=== PATIENT | female | born 1935 | race Caucasian/White ===

== ENCOUNTER 2019-09-06 09:54 | Inpatient (IN) ==
[2019-09-06] MEDS ORDERED: ASPIRIN PO ONE (10:02)
[2019-09-06 10:36] LABS: INR 0.91; PROTIME 12.3 Seconds (11.0-16.0); PTT 30.2 Seconds (22.3-41.8)
--- NOTE | 2019-09-06 10:39 | Diag Imaging Result Doc PS360 ---
EXAM: CHEST-2 VIEWS HISTORY: HTN TECHNIQUE: Two views COMPARISON: 08/12/2019 FINDINGS: The lungs are hyperexpanded. The heart is not enlarged. The vessels are small. There are no infiltrates. No pleural effusions. Mild scoliosis. IMPRESSION: Emphysema Electronically signed by Jerardo Palafox 09/06/2019 10:37 AM
[2019-09-06 10:46] LABS: BASO# 0.06 X1000 (0.0-0.2); BASO% 0.7 % (0.0-0.8); EOS# 0.16 X1000 (0.0-0.7); EOS% 1.8 % (0.0-10.0); HEMATOCRIT 44.5 % (37.0-47.0); HEMOGLOBIN 14.1 g/dL (12.0-16.0); IMM GRAN# 0.02 X1000 (0.0-0.04); IMM GRAN% 0.2 % (0.0-0.5); LYMPH# 2.63 X1000 (1.2-3.4); LYMPH% 29.3 % (20.5-51.1); MCH 30.2 PG (27-31); MCHC 31.7 g/dL (33-37); MCV 95.3 FL (81-99); MONO# 0.65 X1000 (0.11-0.59); MONO% 7.2 % (1.7-9.3); MPV 11.6 FL (7.4-10.4); NEUT# 5.46 X1000 (1.4-6.5); NEUT% 60.8 % (42.2-75.2); PLT 174 X1000 (130-400); RBC 4.67 XMIL (4.2-5.4); RDW 13.3 % (11.5-14.5); WBC 8.98 X1000 (4.8-10.8)
[2019-09-06] MEDS ORDERED: APRESOLINE IV ONE (11:02)
[2019-09-06 11:23] LABS: ALB/GLOB RATIO 1.2; CALCIUM 9.4 mg/dL (8.8-10.2); CREATININE 1.2 mg/dL (0.5-0.9); POTASSIUM 5.1 mmol/L (3.5-5.1); TOTAL BILIRUBIN 0.36 mg/dL (0.20-1.00); TOTAL PROTEIN 7.3 g/dL (6.3-8.3)
--- NOTE | 2019-09-06 12:06 | EKG Report ---
Test Performed on : 09/06/2019 10:08:39 AM Test Reason : HTN Blood Pressure : / mmHG Vent. Rate : 074 BPM Atrial Rate : 074 BPM P-R Int : 112 ms QRS Dur : 076 ms QT Int : 392 ms P-R-T Axes : 065 030 085 degrees QTc Int : 435 ms Normal sinus rhythm. Possible Left atrial enlargement Left ventricular hypertrophy with repolarization abnormality Abnormal ECG No previous ECGs available Unconfirmed Result
--- NOTE | 2019-09-06 13:00 | Diag Imaging Result Doc PS360 ---
EXAM: CT HEAD W/O CONTRAST INDICATION: dizziness, history of stroke TECHNIQUE: This exam was performed using automated exposure control, adjustment of mA or kV according to patient size, and/or use of iterative reconstruction technique. COMPARISON: 08/21/2019 FINDINGS: There is stable diffuse atrophy and ventriculomegaly. There is stable patchy low attenuation in the periventricular and subcortical white matter suggesting mild to moderate microangiopathy. There is no definite acute infarct given the limited sensitivity of CT versus MRI. There is no discrete intracranial mass, mass effect, or intracranial hemorrhage. The surrounding soft tissues and bony structures are essentially unremarkable. IMPRESSION: Stable chronic changes. No definite acute intracranial pathology by CT. Electronically signed by Oneal Richard 09/06/2019 12:57 PM
--- NOTE | 2019-09-06 14:06 | Diag Imaging Result Doc PS360 ---
EXAM: CT ANGIOGRM PULMONARY ARTERIES INDICATION: difficulty breathing, left arm swollen TECHNIQUE: This exam was performed using automated exposure control, adjustment of mA or kV according to patient size, and/or use of iterative reconstruction technique. Thin section axial images and 3-D MIPS were obtained. COMPARISON: None. FINDINGS: There is no evidence of pulmonary embolism. There is fairly extensive aortic atherosclerotic disease with mural calcifications and irregular mural soft plaques throughout the thoracic aorta and especially at the proximal abdominal aorta. There is no evidence of thoracic aortic aneurysm or dissection. There are calcified hilar lymph nodes indicating prior granulomatous disease. There is no evidence of significant mediastinal or hilar lymphadenopathy, otherwise. There is interstitial thickening with a basilar predominance bilaterally suggesting mild edema. There is minimal bibasilar subsegmental atelectasis. There is no pleural fluid collection and no pneumothorax. Limited views of the upper abdomen are essentially unremarkable. IMPRESSION: 1.No evidence of pulmonary embolism. 2.Suggestion of mild interstitial edema with a basilar predominance and mild bibasilar atelectasis. 3.Other incidental/nonacute findings detailed above. Electronically signed by Oneal Richard 09/06/2019 2:04 PM
[2019-09-06] MEDS ORDERED: NS 500 ML IV ONE (14:28)
--- NOTE | 2019-09-06 14:34 | EKG Report ---
Test Performed on : 09/06/2019 12:22:38 PM Test Reason : tachycardia Blood Pressure : / mmHG Vent. Rate : 124 BPM Atrial Rate : 124 BPM P-R Int : 132 ms QRS Dur : 076 ms QT Int : 314 ms P-R-T Axes : 066 001 117 degrees QTc Int : 451 ms Sinus tachycardia. Possible Left atrial enlargement Left ventricular hypertrophy with repolarization abnormality Abnormal ECG When compared with ECG of 06-SEP-2019 10:08, (Unconfirmed) Vent. rate has increased BY [address] now depressed in Lateral leads Nonspecific T wave abnormality no longer evident in Anterior leads Inverted T waves have replaced nonspecific T wave abnormality in Lateral leads Unconfirmed Result
[2019-09-06 15:15] LABS: URINE SOURCE CLEAN CATCH
[2019-09-06 15:26] LABS: BILIRUBIN URINE NEGATIVE (NEGATIVE); BLOOD URINE NEGATIVE (NEGATIVE); COLOR STRAW; GLUCOSE URINE NEGATIVE (NEGATIVE); KETONE URINE NEGATIVE (NEGATIVE); LEUKOCYTES URINE NEGATIVE (NEGATIVE); NITRITE URINE NEGATIVE (NEGATIVE); PROTEIN URINE NEGATIVE (NEGATIVE); SP GRAVITY URINE 1.005; TURBIDITY URINE CLEAR (CLEAR); UROBILINOGEN URINE NORMAL (NORMAL)
[2019-09-06 15:27] LABS: UR EPITHELIAL CELLS <10 /HPF (<10); URINE BACTERIA NEGATIVE /HPF; URINE RBC <10 /HPF (<10); URINE WBC <10 /HPF (<10)
--- NOTE | 2019-09-06 16:05 | PROVIDER DOCUMENTATION ---
This chart was entered by Savanah Lozada Scribe, acting as scribe for Baldemar Soto MD. HPI-General Adult - General Chief Complaint: B/P Problems Stated Complaint: HIGH BP,SLURRED SPEECH Time Seen by Provider: 09/06/19 11:01 Source: patient, family Allergies/Adverse Reactions: Patient Allergies Allergy/AdvReac Type Severity Reaction Status Date / Time No Known Allergies Allergy Verified 04/10/18 14:52 Home Medications: Home Medication List Medication Instructions Recorded Confirmed Last Taken Type Ondansetron [Zofran Odt] 8 mg PO BID PRN #6 tab.rapdis 04/10/18 Unknown Rx Tramadol [Ultram] 50 mg PO Q8H PRN #20 tab 04/10/18 Unknown Rx Ibuprofen 800 mg PO TID PRN #30 tab 02/19/19 Unknown Rx Atorvastatin Calcium 20 mg PO DAILY 09/06/19 09/06/19 Unknown History Losartan Potassium 50 mg PO DAILY 09/06/19 09/06/19 Unknown History - History of Present Illness -Gen Adult Nature of Presenting Problems: 83 yowf presents to the ed with onset this am of dizziness, unsteady gait and elevated Bp of 236/100. pt recently had a abnormal head CT and has a dx of ICP. pt has a follow up appt in october with neuro but do to sx onset this am family brought her in for tx. pt on exam is nontoxic in appearance and sx seems to have improved. Location of Pain/Injury: reports: none Pain Radiation: reports: no radiation Quality of Pain: reports: none Severity: reports: moderate (sizziness and balnce issues) Onset/Duration: reports: this morning Timing: reports: improving, intermittent Context/Activities at Onset: reports: light activity Modifying Factors: improves with: rest. worse with: movement Associated Symptoms: reports: dizziness, trouble walking. denies: back/neck pain, chest pain, headaches, nausea, shortness of breath, vomiting Similar Symptoms Previously?: Yes Recently seen or treated by another doctor?: Yes Review of Systems - Adult - REVIEW OF SYSTEMS - ADULT ROS:: ROS per family Constitutional: denies: chills, fever Eyes: reports: no symptoms reported Ears, Nose, Mouth & Throat: reports: no symptoms reported Cardiovascular: denies: chest pain, palpitations Respiratory: denies: cough, shortness of breath, wheezing Gastrointestinal: denies: diarrhea, nausea, vomiting Genitourinary: reports: no symptoms reported Musculoskeletal: reports: no symptoms reported Integumentary: reports: no symptoms reported Neurological: reports: see HPI, dizziness/vertigo, loss of balance. denies: ataxia, headache/migraines, slurred speech, syncope, tremors Psychiatric: reports: no symptoms reported Endocrine: reports: no symptoms reported Hematologic/Lymphatic: reports: no symptoms reported Allergic/Immunologic: reports: no symptoms reported All Other Systems: Reviewed and Negative Past History - Adult - PAST MEDICAL HISTORY-ADULT Review of Records: reports: Old Records Reviewed, Nursing Assessment Review, Medications Reviewed, Social history reviewed & non-contributory. Major Childhood Illnesses: reports: denies history Cardiovascular: reports: HTN, hyperlipidemia Respiratory: reports: denies history Gastrointestinal: reports: GERD Obstetrical/Gynecological: reports: denies history Genitourinary: reports: denies history Musculoskeletal: reports: arthritis Hand Dominance: Right Handed Neurological: reports: CVA Psychiatric: reports: denies history Endocrine/Immune: reports: denies history Other Conditions: reports: denies history - PRIOR SURGERIES/PROCEDURES Surgical/Procedure History: reports: reviewed, not pertinent - IMMUNIZATION STATUS Childhood Immunizations: See Nurse Assessment Flu Vaccine: See Nurse Assessment - FAMILY HISTORY Family History: reviewed, not pertinent - SOCIAL HISTORY Smoking: quit greater than 1 year Substance Use: denies Alcohol Use Frequency: never Living Situation: family Physical Exam-General - PHYSICAL EXAM-ADULT Initial Vital Signs Reviewed: Yes - CONSTITUTIONAL General Appearance: appears well, alert, no apparent distress, thin - EYES Eyes: PERRL/EOMI, pink conjunctivae - HEAD, EARS, NOSE, MOUTH & THROAT HENMT: moist mucous membranes, normal ENT inspection - NECK Neck: non-tender, full range of motion, supple, normal inspection - RESPIRATORY Respiratory: chest non-tender, lungs clear, normal breath sounds - CARDIOVASCULAR Cardiovascular: normal peripheral pulses, regular rate, rhythm - CHEST (BREASTS) Chest/Breast: deferred - GASTROINTESTINAL (ABDOMEN) Abdominal Exam: normal bowel sounds, non tender, soft - GENITOURINARY Female Genitalia/Pelvic Exam: deferred Rectal Exam: deferred Hemoccult Exam: deferred - MUSCULOSKELETAL Back Exam: no CVA tenderness, no vertebral tenderness Extremity: normal range of motion, non-tender, normal inspection, normal capillary refill, pelvis stable - SKIN Integumentary: normal color, normal turgor, warm/dry - NEUROLOGIC Neurologic: patient navigator II-XII nml as tested - PSYCHIATRIC Psych/Mental Status: normal mood/affect, normal thought content, normal thought process, oriented x 3 Progress - PLAN OF CARE/RESULTS Progress/Plan/Lab Results: Vital Signs - 8 hr 09/06/19 09:57 Temperature 97.4 F L Pulse Rate 76 Respiratory Rate 18 Blood Pressure 236/100 O2 Sat by Pulse Oximetry 98 Laboratory Results - last 24 hr 09/06/19 09/06/19 09/06/19 10:10 10:10 10:10 WBC 8.98 RBC 4.67 Hgb 14.1 Hct 44.5 MCV 95.3 MCH 30.2 MCHC 31.7 L RDW Std Deviation 13.3 Plt Count 174 MPV 11.6 H Immature Gran % (Auto) 0.2 Neut % (Auto) 60.8 Lymph % (Auto) 29.3 [place] % (Auto) 7.2 Eos % (Auto) 1.8 Baso % (Auto) 0.7 Immature Gran # (Auto) 0.02 Neut # (Auto) 5.46 Lymph # (Auto) 2.63 [place] # (Auto) 0.65 H Eos # (Auto) 0.16 Baso # (Auto) 0.06 PT INR PTT (Actin FS) Sodium 137 Potassium 5.1 Chloride 99 Carbon Dioxide 25 Anion Gap 13 BUN 16 Creatinine 1.2 H Estimated GFR/1.73 m2 43 BUN/Creatinine Ratio 13 Glucose 113 H Calculated Osmolality 276 Calcium 9.4 Total Bilirubin 0.36 AST 18 ALT 10 Alkaline Phosphatase 63 Creatine Kinase 101 Troponin T High Sens Dek-Y-Lqpafhxfhys Pept 1555 H Total Protein 7.3 Albumin 4.0 Globulin 3.3 Albumin/Globulin Ratio 1.2 09/06/19 09/06/19 10:10 10:10 WBC RBC Hgb Hct MCV MCH MCHC RDW Std Deviation Plt Count MPV Immature Gran % (Auto) Neut % (Auto) Lymph % (Auto) [place] % (Auto) Eos % (Auto) Baso % (Auto) Immature Gran # (Auto) Neut # (Auto) Lymph # (Auto) [place] # (Auto) Eos # (Auto) Baso # (Auto) PT 12.3 INR 0.91 PTT (Actin FS) 30.2 Sodium Potassium Chloride Carbon Dioxide Anion Gap BUN Creatinine Estimated GFR/1.73 m2 BUN/Creatinine Ratio Glucose Calculated Osmolality Calcium Total Bilirubin AST ALT Alkaline Phosphatase Creatine Kinase Troponin T High Sens 21 H Uka-K-Auldbgmlehi Pept Total Protein Albumin Globulin Albumin/Globulin Ratio Orders Category Date Time Status Cardiac Monitoring DIRECTED Care 09/06/19 10:02 Active Oxygen Therapy- ED Nursing DIRECTED Care 09/06/19 10:02 Active Saline Loc NOW Care 09/06/19 10:02 Active CHEST-2 VIEWS [RAD] Stat Exams 09/06/19 10:[address] HEAD W/O CONTRAST [CT] Stat Exams 09/06/19 12:02 Ordered CBC WITH ELECTRONIC DIFF [HEME] Stat Lab 09/06/19 10:10 Completed CK PROFILE [SP CHEM] Stat Lab 09/06/19 10:10 Completed COMPREHENSIVE METABOLIC PANEL [CHEM] Stat Lab 09/06/19 10:10 Completed D-DIMER [COAG] Stat Lab 09/06/19 12:12 Ordered PRO B-NATRIURETIC PEPTIDE Stat Lab 09/06/19 10:10 Completed PROTIME WITH INR [COAG] Stat Lab 09/06/19 10:10 Completed PTT [COAG] Stat Lab 09/06/19 10:10 Completed TROPONIN T HIGH SENSITIVITY Stat Lab 09/06/19 10:10 Completed Aspirin Med 09/06/19 10:02 Discontinued 325 mg PO NOW ONE Hydralazine [Apresoline] Med 09/06/19 11:02 Discontinued 10 mg IV NOW ONE CP/SOB/Palp >45 yrs of Age Stat Oth 09/06/19 10:02 Ordered EKG [EKG] Stat Ther 09/06/19 10:02 Draft EKG [EKG] Stat Ther 09/06/19 12:03 Ordered Result Diagrams: 09/06/19 10:10 09/06/19 10:10 - REASSESSMENT Reassessment #1 Time Reassessed: 15:02 Status: improving (BP has improved and dr soto at bedside speaking with pt about poc) - EKG 1 Time of EKG reading by physician:: 10:08 EKG Read and Signed by:: Baldemar Soto EKG Interpretation (*Must complete 3 of following elements*): Abnormal Rate: 74 Rhythm: nsr [place]: normal QRS: LVH (with repolarization abnormality) CT Interval: normal ST Wave: normal Comments: poss left atrial enlargement 2 Time of EKG reading by physician:: 12:22 EKG Read and Signed by:: Baldemar Soto EKG Interpretation (*Must complete 3 of following elements*): Abnormal Rate: 124 Rhythm: sinus tachycardia [place]: normal QRS: LVH (with repolarization abnormality) CT Interval: normal ST Wave: normal Prior EKG Comparison: changes noted Comments: poss left atrial enlargement - XRAY 1 XRAY: Bilateral XRAY Study: Chest Impression: See EMR Report (EXAM: CHEST-2 VIEWS HISTORY: HTN TECHNIQUE: Two views COMPARISON: 08/12/2019 FINDINGS: The lungs are hyperexpanded. The heart is not enlarged. The vessels are small. There are no infiltrates. No pleural effusions. Mild scoliosis. IMPRESSION: Emphysema Electronically signed by Jerardo Palafox 09/06/2019 10:37 AM 09/06/19 1037 Interpreting Physician: Jerardo Palafox MD Dictated Date/Time: 09/06/19 1036 cc: Baldemar Soto MD; Peewee Pitts MD) - CT/MRI 1 CT Study: Head Impression: See EMR Report (EXAM: CT HEAD W/O CONTRAST INDICATION: dizziness, history of stroke TECHNIQUE: This exam was performed using automated exposure control, adjustment of mA or kV according to patient size, and/or use of iterative reconstruction technique. COMPARISON: 08/21/2019 FINDINGS: There is stable diffuse atrophy and ventriculomegaly. There is stable patchy low attenuation in the periventricular and subcortical white matter suggesting mild to moderate microangiopathy. There is no definite acute infarct given the limited sensitivity of CT versus MRI. There is no discrete intracranial mass, mass effect, or intracranial hemorrhage. The surrounding soft tissues and bony structures are essentially unremarkable. IMPRESSION: Stable chronic changes. No definite acute intracranial pathology by CT. Electronically signed by Oneal Richard 09/06/2019 12:57 PM 09/06/19 1257 Interpreting Physician: Oneal Richard MD Dictated Date/Time: 09/06/19 1256 cc: Baldemar Soto MD; Peewee Pitts MD) - CONSULTS/PCP/HOSPITALIST Notification #1 *Consult/PCP/Hospitalist*: hospitalist Time Discussed: 16:18 (dr cheung) Consult Disposition: Will see in ED, Admit Departure - Departure Date of Disposition Decision: 09/06/19 Time of Disposition Decision: 15:59 DIAGNOSIS: CHF (congestive heart failure), Elevated troponin, Vertigo, Tachycardia Disposition: ADMITTED INPATIENT 09 Certified Medical Emergency: Emergent Condition: Fair Referrals and Follow-Ups: Peewee Pitts MD [Primary Care Provider] - - Critical Care Note This patient required my direct & personal management of CC.: No Attestation - Physician/ URIEL Attestation Patient care was provided by Advanced Practice Provider:: No The physician spent face to face time with patient:: Yes Advanced Practice Provider documentation review:: Supervising physician onsite and consulted in the evaluation and care of this patient. The physician did have a face to face encounter with the patient. This chart was documented by the indicated scribe, (Savanah Lozada, Jemima) a nd accurately reflects the services I performed and decisions made by me, Baldemar Soto MD, as attested by the provider's signature.
[2019-09-06] MEDS ORDERED: ZOFRAN IV PRN (16:47)
[2019-09-06] MEDS ORDERED: TYLENOL PO PRN (16:47)
[2019-09-06] MEDS ORDERED: APRESOLINE IV PRN (17:05)
--- NOTE | 2019-09-06 19:44 | HISTORY AND PHYSICAL ---
ADDENDUM: The patient seen and examined by me [id number]. All the laboratory, vital signs and images were reviewed. Patient presented to the emergency department with a chief complaint of dizziness and some mental status changes, as per the daughter this patient called her and saying that she was drunk even though she has not been drinking, her blood pressure upon admission was around 239/93. She received a dose of hydralazine and the blood pressure dropped but she became a little bit tachycardic, at the moment of my evaluation the patient was around 150s on the monitor and 100 to 110 on the heart rate but she is answering all my questions and following commands. I do not see any focal deficits. She is oriented x3. On my physical exam this patient seems to be stable, is really benign except that this patient is slightly tachycardic and she has a systolic murmur, I am going to stop the losartan due to her chronic kidney disease and she is not diabetic, also the chest x-ray showed emphysema, ED department asked for CT angiogram to rule out pulmonary embolism because the D-dimer was slightly elevated, venous ultrasound was negative as well. This patient will be hospitalized. We have a CT of the head from 15 days ago that showed a worsening normal-pressure hydrocephalus, I would like Dr. Flood to evaluate this patient on Monday to rule this out and to give us some recommendations. For the blood pressure I will start with a low dose of hydralazine since she responded really well and I will continue with as needed hydralazine as well. I agree with the rest of the nurse practitioner's assessment and plan. cc: Sergey Fox MD
--- NOTE | 2019-09-06 19:52 | HISTORY AND PHYSICAL ---
PRIMARY CARE PROVIDER: Dr. Pitts. CHIEF COMPLAINT: Dizziness. HISTORY OF PRESENT ILLNESS: Ms. Marietta Chen is an 83-year-old female with a medical history of a CVA 20+ years ago, hypertension, and hyperlipidemia, who states that 3 times last night she got up to go the bathroom. All 3 times, she had to use her walker because she was so dizzy. She was able to get there and come back without falling, and she was able to sleep in between getting up. She denied any other symptoms other than feeling like she was drunk and that her head felt full. On further questioning her, she had a fall around 2 months ago and hit the back of her head, and from that they had gotten a head CT on the 15 of this month. That head CT shows a finding compatible with worsening normal-pressure hydrocephalus; however, she had another one that showed chronic stable changes and ventriculomegaly. She states the dizziness is not there now. Neurologic exam is intact. She is oriented x3. Something that was found is that she was very hypertensive when she got here. Heart rate was normal at that time, but she was given medication to help bring the blood pressure down. When the blood pressure came down, the heart rate went up from the 70s up to the 140s. Right now she is in the 100s. Blood pressure is stable, and so we are going to admit her for further treatment and evaluation. PAST MEDICAL HISTORY: 1. Peritonitis as a child. 2. Hypertension. 3. Hyperlipidemia. 4. CVA 20+ years ago. 5. Ventriculomegaly or normal-pressure hydrocephalus which is essentially a new diagnosis for her. 6. Arthritis. 7. CKD stage 2. PAST SURGICAL HISTORY: 1. Exploratory laparotomy from the peritonitis when she was a child. 2. Hysterectomy. SOCIAL HISTORY: Quit smoking in the year 1999, but prior to that she was a azbt-elij-upi-day smoker. She did not start smoking until her adult years. No alcohol. No illicit drug use. She lives at home alone. She uses a walker as needed. FAMILY HISTORY: Mother: No medical conditions. Father had heart disease, had to have bypass surgery. ALLERGIES: No known drug allergies. HOME MEDICATIONS: 1. Atorvastatin 20 mg p.o. daily. 2. Losartan 50 mg p.o. daily. REVIEW OF SYSTEMS: Fourteen-point review of systems was completed, and all were negative except for those mentioned above in the HPI. PHYSICAL EXAMINATION: VITAL SIGNS: Temperature 98.2, heart rate 118, respiratory rate 18, blood pressure 129/68, O2 saturation 95% on room air. GENERAL: Ms. Marietta Chen is an 83-year-old female. She is in no acute distress. She is able answer questions appropriately. HEENT: Atraumatic, normocephalic. Pupils equal, round, reactive to light. Extraocular movements intact. Mucous membranes are dry. NECK: Trachea midline. CARDIOVASCULAR: S1, S2. Tachycardic rate and rhythm. No rubs, gallops or murmurs. No lower extremity edema. Has +2 dorsalis and radial pulses. Negative JVD or carotid bruits. PULMONARY: Clear to auscultation. Bilateral breath sounds. No accessory muscle use or work of breathing noted. GI: Soft, nontender, nondistended. Positive bowel sounds x4. EXTREMITIES: Moves all extremities equally. Full range of motion. NEUROLOGIC: A and O x3. Follows commands. Sensory is intact. SKIN: Warm, dry, intact. LABORATORY DATA: White blood cells 8000, hemoglobin 14, hematocrit 44, platelet count 174. INR is 0.91, PTT is 30.2. D-dimer is 1.35. Sodium 137, potassium 5.1, BUN 16, creatinine 1.2, glucose 113, calcium 9.4. Bilirubin 0.36, AST 18, ALT 10. CK 101, troponin is 21. ProBNP is 1555. Albumin is 4.0. Urinalysis negative. IMAGING: Pulmonary arteriogram: No evidence of pulmonary emboli. There is mild interstitial edema with a basilar predominance and mild basilar atelectasis. Head CT shows ventriculomegaly and stable diffuse atrophy. There are no acute findings. Head CT from the 15th of this month was showing worsening normal-pressure hydrocephalus and advanced cerebral atrophy. Chest x-ray on admission showed emphysema. First EKG: Normal sinus rhythm, rate 74, QTc is 435. EKG at 12 o'clock was sinus tachycardia, rate 124, QTc of 451. ASSESSMENT AND PLAN: 1. Dizziness with differential diagnosis of hypertensive urgency, a cerebellar stroke, or normal- pressure hydrocephalus that might be worsening. Currently, she is denying any dizziness at this point. She feels like it was after she received something to lower her blood pressure. 2. Reported normal-pressure hydrocephalus which may be a new finding. We are going to get a brain MRI and MRA. That is also to help rule out any stroke, but she was planning on having one this month and going to see Dr. Brown in [place], the neurosurgeon. We are going to get Dr. Flood to see her on Monday as well. 3. Hypertensive urgency. Hydralazine brought the blood pressure down; however, the heart rate went up. She is going to continue on hydralazine for now, scheduled and p.r.n. Blood pressure is much better, and she feels better. 4. Hyperlipidemia. Continue statin. 5. Chronic kidney disease stage 2. It is stable. Urine output is good. 6. Elevated proBNP. We will go ahead and get an echocardiogram. 7. Deep venous thrombosis prophylaxis with sequential compression devices. 8. Elevated D-dimer, negative for pulmonary embolism, negative for deep venous thrombosis. Dictated by ASHLEIGH Cruz for Sergey Fox MD cc: ASHLEIGH Cruz MD
[2019-09-06] MEDS ORDERED: LIPITOR PO SCH (21:00)
[2019-09-06] MEDS: LIPITOR PO SCH (22:46)
[2019-09-07 07:26] LABS: BASO# 0.04 X1000 (0.0-0.2); BASO% 0.5 % (0.0-0.8); EOS# 0.25 X1000 (0.0-0.7); EOS% 3.1 % (0.0-10.0); HEMATOCRIT 42.4 % (37.0-47.0); HEMOGLOBIN 13.5 g/dL (12.0-16.0); LYMPH# 2.88 X1000 (1.2-3.4); LYMPH% 35.6 % (20.5-51.1); MCH 30.3 PG (27-31); MCHC 31.8 g/dL (33-37); MCV 95.1 FL (81-99); MONO# 0.73 X1000 (0.11-0.59); MPV 11.4 FL (7.4-10.4); NEUT# 4.19 X1000 (1.4-6.5); NEUT% 51.8 % (42.2-75.2); PLT 177 X1000 (130-400); RBC 4.46 XMIL (4.2-5.4); RDW 13.5 % (11.5-14.5); WBC 8.09 X1000 (4.8-10.8)
[2019-09-07] MEDS: APRESOLINE PO SCH ×3 (08:30→16:26)
[2019-09-07 08:33] LABS: ALBUMIN 3.3 g/dL (3.5-5.0); CALCIUM 9.1 mg/dL (8.8-10.2); CREATININE 1.2 mg/dL (0.5-0.9); MAGNESIUM 1.6 mg/dL (1.5-2.7); POTASSIUM 3.6 mmol/L (3.5-5.1); TOTAL BILIRUBIN 0.52 mg/dL (0.20-1.00); TOTAL PROTEIN 6.6 g/dL (6.3-8.3)
[2019-09-07] MEDS ORDERED: COZAAR PO SCH (09:00)
--- NOTE | 2019-09-07 14:27 | ECHO REPORT ---
ORDER DATE: 09/06/2019 INDICATION: Shortness of breath. Elevated proBNP. FINDINGS: 1. The right atrium appears normal in size at 3.3 cm. 2. Mild tricuspid regurgitation. RV systolic pressure of 70 suggesting pulmonary hypertension. 3. Normal RV size and systolic function. 4. No significant pulmonic insufficiency. 5. Mild left atrial enlargement with a volume index of 33. 6. No mitral valve prolapse. Mild mitral regurgitation. No mitral stenosis is identified. There is some suggestion of chordal systolic anterior motion of the mitral leaflet. 7. Somewhat small LV cavity with an end-diastolic dimension of 2.6 cm. There is moderate to severe left ventricular hypertrophy with a posterior and interventricular septal wall thickness of 1.2 and 1.6 cm respectively. There is a significant left ventricular outflow tract gradient that is as high as 190 mmHg on peak. The patient would not or could not cooperate with Valsalva. The EF is hyperdynamic with an estimated EF greater than 70%. 8. Aortic valve opens well. No evidence of stenosis or insufficiency. 9. Aorta appears normal in visualized segments. 10. No pericardial effusion seen. cc: MD Nuris Crane CRNP
--- NOTE | 2019-09-07 14:44 | PROGRESS NOTE ---
DATE: 09/07/2019 SUBJECTIVE: Early this morning I saw Ms. Chen. She had actually gone to the restroom. When I went in, she was glad to see a physician. She says she was doing well. I asked her about her symptoms. She says she does not have any more dizziness and she feels great. OBJECTIVE: Vital Signs: Blood pressure was 153/60, pulse of 72, respiration was 18. Temperature is 98.1 degrees. The patient was saturating 99% on room air. General: Ms. Chen is an 83-year- old female. She was in bed, sitting at the edge. Was not in any distress. HEENT: Mucosa was pink and moist. Anicteric. Acyanotic. Neck: Supple. Chest: Clear to auscultation. There were no crepitations, no rhonchi. Cardiovascular: Regular rate and rhythm. Gastrointestinal: Abdomen was soft. Extremities: No pedal edema. Distal pulses were present. Central nervous system: Patient was awake, alert, oriented x4. She had very clear speech. Executive function seems to be pretty preserved for her age and she did not show any focal deficit. I asked Ms. Chen to walk outside her room on to the passage and she did that without any assistance. She did not show any abnormal gait pattern. I also explored her coordination and she seems to be remarkably stable, no abnormality elicited. LABORATORY DATA: Her lab data is completely normal with a WBC of 8.09, hemoglobin of 13.5, platelet count of 177,000, and her chemistry is also within normal range, creatinine is 1.2. She has been with a baseline of 1.1 to 1.5. IMAGING STUDIES: I also reviewed her imaging studies including a chest x-ray which was done yesterday which showed emphysema. A CT scan of the head which was done yesterday and compared to the one done on 08/21/2019 and this showed stable chronic changes. No definite acute intracranial pathology. A CTA of the lungs was done which showed no evidence of pulmonary embolism. There is a suggestion of mild interstitial edema with basilar predominance and mild bibasilar atelectasis. ASSESSMENT: 1. Severe uncontrolled hypertension on admission associated with dizziness. Ms Murphy at this point does not have any dizziness, does not show any signs of any cerebellar dysfunction. She has been able to walk from her bed to outside her hospital room unassisted and without any walking aid. She did not fall. She did not even show any signs of being unsteady and as I said, there was no pathological gait elicited. 2. 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 The patient told me that she had an appointment with a neurosurgeon during next week. Of note, Ms. Chen, for what I have seen, does not show any remarkable cognitive dysfunction. She does not have any classical abnormal gait and she denies having any urinary incontinence. She also does not have any headaches, no nausea, no visual issues. At any case, I think she had a CT scan on the of this month which did make mention of that. However, the repeat CT scan yesterday did not show any changes. For the most part, she looks asymptomatic, so I have recommended that she follows up with her appointment with the neurosurgeon since that has already been made. 3. Chronic kidney disease stage IIIA noted. 4. Abnormal TSH. Patient will need to have this repeated with a free T4 to be sure if she does not have any underlying hypothyroidism. PLAN: In general, I saw Ms. Chen today. She was by herself, very pleasant, very alert and very sharp for her age. She denied any symptoms and she was able to walk without any assistance and she did not show any signs that she could fall or any instability. For sure, she did not have any pathological gait, and her blood pressure has reasonably been controlled. I thought Ms Chen could be discharged. However, the daughter, when she was notified about the discharge, demanded to I call her and when I did, she was quite upset and that she thought that Ms Chen was going to be here until Monday to be seen by a neurologist and also to have the MRI done. I did explain to her that I do think that she probably needs an MRI; however, I did not think that she needed it emergently that needed to be done as an inpatient and that she also needs a Neurology consult, which I thought that outpatient could address that as well. Ms Chen herself had already told me in that she had an appointment next week with a neurosurgeon. However, the daughter is telling me the appointment is not next week and that it is somewhere in October. I have withheld the discharge until the daughter comes to the hospital. cc: Fareed Marquez MD
--- NOTE | 2019-09-07 17:32 | Extremity Venous Study ---
PROCEDURE NAME: Venous U/S Bilateral Legs - 09/06/2019 INDICATION: The patient has an elevated D-dimer. FINDINGS: Bilateral lower extremity venous images were accomplished. The common femoral, superficial femoral, deep femoral, popliteal, posterior tibial, peroneal, and greater saphenous veins are imaged bilaterally. Doppler is used to evaluate the veins for spontaneity, phasicity, respiratory excursion, and distal augmentation. All veins are compressible. No intraluminal clot is seen. INTERPRETATION: No evidence of deep or superficial venous thrombosis in either lower extremity veins identified. cc: MD Nuris Cabrera CRNP
--- NOTE | 2019-09-07 17:43 | EKG Report ---
Test Performed on : 09/07/2019 06:28:54 AM Test Reason : Tachycardia Blood Pressure : / mmHG Vent. Rate : 073 BPM Atrial Rate : 073 BPM P-R Int : 120 ms QRS Dur : 088 ms QT Int : 424 ms P-R-T Axes : 072 046 082 degrees QTc Int : 467 ms Normal sinus rhythm. Voltage criteria for left ventricular hypertrophy Nonspecific ST and T wave abnormality Abnormal ECG When compared with ECG of 06-SEP-2019 12:22, (Unconfirmed) Vent. rate has decreased BY [address] no longer depressed in Lateral leads Nonspecific T wave abnormality now evident in Anterior leads T wave inversion no longer evident in Lateral leads Confirmed by Luiz VASQUEZ, Ramin Reyes ([id number]) on 09/08/2019 9:25:02 AM
[2019-09-07] MEDS: COREG PO SCH (21:11)
[2019-09-07] MEDS: LIPITOR PO SCH (21:11)
[2019-09-08 08:43] LABS: BASO# 0.03 X1000 (0.0-0.2); BASO% 0.4 % (0.0-0.8); EOS# 0.25 X1000 (0.0-0.7); EOS% 3.4 % (0.0-10.0); HEMATOCRIT 42.1 % (37.0-47.0); HEMOGLOBIN 13.3 g/dL (12.0-16.0); LYMPH# 2.42 X1000 (1.2-3.4); LYMPH% 32.7 % (20.5-51.1); MCHC 31.6 g/dL (33-37); MONO# 0.74 X1000 (0.11-0.59); MPV 11.6 FL (7.4-10.4); NEUT# 3.97 X1000 (1.4-6.5); NEUT% 53.5 % (42.2-75.2); PLT 175 X1000 (130-400); RBC 4.43 XMIL (4.2-5.4); RDW 13.5 % (11.5-14.5); WBC 7.41 X1000 (4.8-10.8)
[2019-09-08] MEDS ORDERED: APRESOLINE PO SCH (09:00)
[2019-09-08 09:07] LABS: ALB/GLOB RATIO 1.1; ALBUMIN 3.3 g/dL (3.5-5.0); ALBUMIN 3.4 g/dL (3.5-5.0); CALCIUM 9.3 mg/dL (8.8-10.2); CALCIUM 9.5 mg/dL (8.8-10.2); CREATININE 1.1 mg/dL (0.5-0.9); CREATININE 1.2 mg/dL (0.5-0.9); MAGNESIUM 1.7 mg/dL (1.5-2.7); PHOSPHORUS 2.7 mg/dL (2.7-4.5); POTASSIUM 4.5 mmol/L (3.5-5.1); POTASSIUM 4.6 mmol/L (3.5-5.1); TOTAL BILIRUBIN 0.38 mg/dL (0.20-1.00); TOTAL PROTEIN 6.6 g/dL (6.3-8.3)
[2019-09-08 09:27] LABS: FREE T4 1.07 ng/dL (0.93-1.70)
[2019-09-08 09:29] LABS: TSH 8.45 uIUmL (0.27-4.20)
[2019-09-08] MEDS: COZAAR PO SCH (09:45)
[2019-09-08] MEDS: COREG PO SCH (09:45)
--- NOTE | 2019-09-08 10:44 | PROGRESS NOTE ---
DATE: 09/08/2019 SUBJECTIVE: I saw and examined Ms. Chen today. Ms. Chen refers to be doing well. She was in the bathroom. She says she just went to use the restroom. She is doing well. She denies any more dizziness. She walked back and forth without any problems. OBJECTIVE: Vital Signs: Current vitals are blood pressure 181/63, pulse of 67, respirations 16, temperature is 97.9 degrees. General: Ms. Chen is an 83-year-old female. She is at the side of the bed in no distress. HEENT: Mucosa is pink and moist. Anicteric. Acyanotic. Neck: Supple. Chest: Good air entry bilateral. There were no crepitations. No rhonchi. Cardiovascular: Regular rate and rhythm. No murmurs, no rubs, no gallops. Abdomen: Soft, nontender. Bowel sounds present. Extremities: No pedal edema. TEACHER DANCING: Patient is awake, alert, oriented x4. Clear speech. No motor deficit and patient with normal gait. LABORATORY DATA: Creatinine is down to 1.1. Echocardiogram which was done 3 days ago, did show a severe left ventricle hypertrophy and a posterior and interventricular septal wall thickening of 1.2 and 1.6 respectively. There is a significant left ventricular outflow gradient that is as high as 190 mm/hg on peak. The patient could not perform Valsalva during the testing. ASSESSMENT: 1. Dizziness on presentation, presumably related to severe uncontrolled hypertension. However, left ventricle outflow tract obstruction could potentially also be causing the symptoms. The patient has been started on medication for better blood pressure control and we will consult Cardiology. 2. Severe uncontrolled hypertension. Continue to improve. 3. 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 The patient is currently asymptomatic. She is pending an MRI and a neuro consult tomorrow. Ms. Chen also has a Neurosurgery consult with Dr. Brown sometime next month. 4. Acute on chronic kidney disease stage 3A. Creatinine is down to 1.1. 5. Subclinical hypothyroidism with TSH less than 10. Patient is asymptomatic. We will continue to monitor. PLAN: So, in general, Ms. Chen is feeling a whole lot better. No more dizziness. Blood pressure is better controlled. We are going to continue to titrate medications. Her echocardiogram was remarkably abnormal. We have started her on a beta laura as well and we are pending Cardiology consult. Ms Chen is also pending Neurology consult and an MRI tomorrow. Depending on what the MRI and the baby registry sales consultant's recommendations are, I think we can potentially get her discharged tomorrow. cc: Fareed Marquez MD MTDMarti
[2019-09-08] MEDS: LOPRESSOR PO SCH ×2 (13:59→21:00)
--- NOTE | 2019-09-08 15:10 | CARDIOLOGY CONSULTATION ---
DATE: 09/08/2019 CHIEF COMPLAINT ON PRESENTATION: Dizziness. HISTORY OF PRESENT ILLNESS: Ms. Chen is an 83-year-old, white female with a history of CVA and hypertension. She presented when the evening previous, she attempted to get out of bed on multiple occasions and was very dizzy. She did not have any falls. She felt well the previous day. She reports no recent changes to medications. She has had good oral intake. No recent fevers or chills. She has had some difficulty with falls over the last several months but she reports most of these are due to tripping and not due to syncope. She denies any orthopnea. PAST MEDICAL HISTORY: Significant for: 1. Hypertension. 2. Hyperlipidemia. 3. CVA approximately 20 years ago. 4. Normal pressure hydrocephalus recently diagnosed in the last couple of weeks. 5. Osteoarthritis. SOCIAL HISTORY: Quit smoking in 1999. No alcohol and no illicit drug use. FAMILY HISTORY: Father had some sort of heart disease as well as bypass surgery. REVIEW OF SYSTEMS: A 10 system review of systems is negative except for those things mentioned in the HPI. PHYSICAL EXAMINATION: Afebrile. Heart rate 67, blood pressure is 181/63. General: She is in no acute distress. HEENT: Oropharynx is moist. Poor dentition. Eye examination shows pink conjunctivae and white sclerae. Neck: Examination shows no obvious thyromegaly or thyroid tenderness. Cardiovascular: She sounds to be in a regular rate and rhythm. She has a 2/6 systolic murmur that is best heard at the left lower sternal border. She has no lower extremity edema. Her chest examination sounds clear to auscultation bilaterally. She has no increased work of breathing. Abdomen: Soft, nontender, nondistended. She has no obvious organomegaly. Skin Examination: Warm and dry throughout. She has no obvious rashes. Neurological: Moving all extremities well. No lateralizing deficits. PERTINENT DATA: She had a CT of her chest demonstrating no evidence of pulmonary embolism. There is mild interstitial edema identified. Head CT on the suggests normal pressure hydrocephalus. Followup head CT on the demonstrated stability compared to that study. She had a lower extremity venous study showing no evidence of DVT. Her electrocardiogram shows sinus rhythm, some evidence for left ventricular hypertrophy. Lab data demonstrates a white count of 7.4, hematocrit 42, platelet count of 175,000. Sodium 139, potassium is 4.5, BUN 18, creatinine is 1.1. Her magnesium level is 1.7, albumin 3.3. TSH 8.45. ProBNP was 1555 on presentation with a troponin of 21. ASSESSMENT: Ms. Chen is an 83-year-old female who presented with dizziness. Subsequent echocardiogram shows evidence of left ventricular outflow tract obstruction with gradient as high as 190. Normal ejection fraction. Moderate left ventricular hypertrophy. PLAN: We will adjust her blood pressure medications. I will stop her carvedilol and place her on metoprolol 12.5 p.o. q.6 hours. She already has some heart rate slowing so we will preferentially use beta-blockers over verapamil in an effort to utilize amlodipine as well. I will add in amlodipine at 5 mg daily and stop the hydralazine as afterload reduction would be preferential to avoid in this patient, as would be dehydration. We will continue to hopefully titrate medications and recheck an echocardiogram as an outpatient. cc: Flaco Sandy MD
[2019-09-08] MEDS: LIPITOR PO SCH (21:00)
[2019-09-09] MEDS: LOPRESSOR PO SCH ×3 (05:22→14:11)
[2019-09-09 08:42] LABS: BASO# 0.03 X1000 (0.0-0.2); BASO% 0.4 % (0.0-0.8); EOS# 0.27 X1000 (0.0-0.7); EOS% 3.2 % (0.0-10.0); HEMATOCRIT 45.6 % (37.0-47.0); HEMOGLOBIN 14.1 g/dL (12.0-16.0); IMM GRAN# 0.02 X1000 (0.0-0.04); IMM GRAN% 0.2 % (0.0-0.5); LYMPH# 2.74 X1000 (1.2-3.4); LYMPH% 32.8 % (20.5-51.1); MCH 29.7 PG (27-31); MCHC 30.9 g/dL (33-37); MONO# 0.69 X1000 (0.11-0.59); MONO% 8.3 % (1.7-9.3); MPV 11.7 FL (7.4-10.4); NEUT% 55.1 % (42.2-75.2); PLT 194 X1000 (130-400); RBC 4.75 XMIL (4.2-5.4); RDW 13.7 % (11.5-14.5); WBC 8.35 X1000 (4.8-10.8)
[2019-09-09] MEDS ORDERED: NORVASC PO SCH (09:00)
[2019-09-09 09:01] LABS: ALBUMIN 3.7 g/dL (3.5-5.0); CALCIUM 9.3 mg/dL (8.8-10.2); CREATININE 1.2 mg/dL (0.5-0.9); MAGNESIUM 1.7 mg/dL (1.5-2.7); TOTAL BILIRUBIN 0.43 mg/dL (0.20-1.00); TOTAL PROTEIN 7.4 g/dL (6.3-8.3)
[2019-09-09] MEDS: COZAAR PO SCH (09:14)
--- NOTE | 2019-09-09 09:43 | Diag Imaging Result Doc PS360 ---
EXAM: MRI BRAIN W/WO CONTRAST 09/09/2019 HISTORY: cva symptoms TECHNIQUE: T1 axial and sagittal, post gadolinium-enhanced axial T1 and coronal reformation, axial T2, FLAIR, DWI and coronal gradient echo. COMMENT: There are no previous MRI studies. There is mild generalized cerebral atrophy and there are scattered punctate areas of increased T2-weighted signal intensity in the subcortical and periventricular white matter bilaterally. There is an old 6 mm lacune in the right cerebellar hemisphere. There is no evidence of restricted diffusion. There is no evidence of abnormal gadolinium enhancement. There is no mass effect, bleed, or abnormal extra-axial fluid collection. IMPRESSION: Chronic ischemic microvascular changes. No evidence of acute disease. Electronically signed by Noel Fuentes 09/09/2019 9:40 AM
--- NOTE | 2019-09-09 09:50 | Diag Imaging Result Doc PS360 ---
EXAM: MRA BRAIN W/O CONTRAST 09/09/2019 HISTORY: cva symptoms TECHNIQUE: 3-D [id number] COMMENT: There is no evidence of aneurysm. The P1 segment of the left posterior cerebral artery is atretic and the vast majority of the flow in the distal vessel is from the posterior communicating artery. There is some irregularity of the A1 segment of the left anterior cerebral artery which is probably due to atherosclerotic plaque formation. The possibility of a significant stenosis cannot be excluded. The anterior communicating artery appears to be patent. Otherwise there is no evidence of major branch occlusion. IMPRESSION: No evidence of acute vascular abnormality. Electronically signed by Noel Fuentes 09/09/2019 9:47 AM
[2019-09-09 16:15] VITALS: BP 130/76
--- NOTE | 2019-09-09 18:46 | CARDIOLOGY PROGRESS NOTE ---
DATE: 09/09/2019 SUBJECTIVE: Ms. Chen reports she is doing well. No breathing issues. She has had no further issues with confusion. Her MRI, MRA came back with no acute findings. OBJECTIVE: Vital signs: She is afebrile. Heart rate is 54. Blood pressure 156/55. Last 2 systolics were 156 and 160. Generally: No acute distress. Cardiovascular: She sounds to be in a regular rate and rhythm. She has a systolic murmur that is 2/6 in the apical area. She has no lower extremity edema. Chest: Clear bilaterally. She has no increased work of breathing. Abdomen: Soft, nontender. PERTINENT DATA: Sodium 137, potassium 4.0, BUN 20, creatinine is 1.2, magnesium level 1.7. ASSESSMENT: Ms. Chen is an 83-year-old female who presented with confusion. Subsequently was found to have a left ventricular outflow tract obstruction. PLAN: From my standpoint, she can be discharged home. She was discontinued off the hydralazine. For now, she is on amlodipine, low-dose beta-laura, and losartan. We will continue to try to titrate the antihypertensive, avoiding aggressive afterload reduction of her diuresis. cc: Flaco Sandy MD
--- NOTE | 2019-09-09 20:41 | NEUROLOGY CONSULTATION ---
DATE: 09/09/2019 REASON FOR CONSULT: Question normal-pressure hydrocephalus. HISTORY OF PRESENT ILLNESS: This is an 83-year-old right-handed female who was admitted 09/06. History is from the patient and attentive daughter. Apparently, she woke up and realized that she was quite dizzy. She was afraid to stand and walk. This continued so they brought her to the emergency department. She was found to have elevated blood pressure first recorded at 236/100. She is being treated for that. Her symptoms improved after her blood pressure was lowered. Other than dizziness, the patient denies any focal neurologic symptoms. No visual changes. No double vision. No dysarthria. No difficulty controlling her secretions. No focal weakness. Head CT did not show acute findings. MRI of the brain did not show evidence of stroke or other acute findings. The patient's daughter says the patient has had a few falls in the last year or so. There is not loss of consciousness reported. She apparently tripped on an object at 1 point. Another instance she had her head stuck inside of a turtle neck shirt and walked into a door and fell. The daughter reports that she has had some gait difficulty for the last couple of years. She describes it as walking and then suddenly veering briefly to 1 side or the other. Before regaining control. She bought her a walker, which the patient uses occasionally. She reports noticing some forgetfulness for the last couple of years and gives an example of re-telling stories. She does not forget close family members or friends. She drives and has not gotten lost in familiar places. She lives alone. She mows the lawn and takes care of the house and herself without much difficulty. The patient reports urinary urgency for the last year. She has not had accidents. Apparently, the patient has befriended a male who is 10 years younger than her. He has a with vascular dementia. He has helped the patient to change the locks on all of her doors of her house on 2 occasions. He has helped her nail her windows shut. She has placed sticks in her windows so they could not be opened. She is concerned that her neighbors or others may break into her home while she is asleep and she thinks this may be happening even though she is not hearing anything. She has a concern that people are taking frozen sausages and toilet paper and other household items from her house. She believes a neighbor may have come in and used her new burleson and dirtied it, leaving it inside the oven for her to find. This male friend has apparently been trying to convince the patient to sign some legal paperwork allowing him to move into the home. Daughter plans to separate the two. PAST MEDICAL HISTORY: 1. Stroke 20 years ago with facial droop and weakness on 1 side of the body. They cannot recall which side. 2. Hyperlipidemia. 3. Hypertension. 4. CKD. 5. Arthritis. SOCIAL HISTORY: Previous smoker, but quit in the year 1999. No alcohol or illicits. She lives alone and is able to take care of herself. FAMILY HISTORY: Heart disease. ALLERGIES: No known drug allergies listed. HOME MEDICATIONS: Include atorvastatin, losartan and aspirin 81 mg daily. REVIEW OF SYSTEMS: Balance of 12 conducted and otherwise negative except that detailed in the HPI. PHYSICAL EXAMINATION: Vital Signs: Afebrile. Blood pressure 136/100 on admission, current 130/76. Pulse. 50s to 60s recently. Respirations 14, 100% on room air. General: Ms Chen is sitting up in bed, awake, alert and oriented. She is attentive and spontaneous. Follows simple and complex commands. Left, right digit distinction preserved. She discusses some remote events and some recent ones. No language disturbance on brief bedside testing. No dysarthria. HEENT: Pupils equal, round, and reactive to bright light. Gaze is conjugate. Ocular movements are full. Visual marcus intact to direct confrontational testing. Face appears symmetric at rest. With smile there appears to be subtle flattening of the left nasolabial fold. Facial sensation reported intact. Tongue is midline. Palate elevates symmetrically. She can hear. Shoulder shrug is full. Neurological: Tone appears equal in the limbs and normal. Power is well- preserved in the limbs with the following exceptions: I can overcome the right deltoid grading 4 to 4- out of 5. However, she seems to guard the shoulder with this maneuver and reports some pain there. She reports symmetric sensation to light touch on the limbs. She has good temperature sensation distally in the feet. Finger to nose intact. She performs rapid alternating movements using the right hand better than the left. Reflexes are reduced throughout. Comparatively, more brisk on the left compared to the right limbs. Plantar responses are downgoing. No clonus. Ankle jerks were absent bilaterally. Gait: The patient gets to the side of the bed and stands without assistance. With casual gait, she takes good strides. Gait is narrow based. She walks quickly down the lehman. At 1 point, I saw her briefly list to the right and she quickly corrected. At that time, she had her head and eyes turned to the left toward me and was talking. She did very well on the turn. DIAGNOSTICS: MRI of the brain with and without contrast personally reviewed. No acute findings. There is moderate generalized cerebral atrophy with ventriculomegaly. There are some chronic microvascular ischemic changes scattered periventricularly and subcortically. MRA of the brain: No evidence of acute abnormality. Head CT noncontrast, personally reviewed. This was performed 09/06/2019, showing stable chronic changes, stable diffuse atrophy and ventriculomegaly. No acute findings. There is also a head CT from 08/21/2019 that was personally reviewed and appears similar to the most recent CT. CT from 02/19/2019 also personally reviewed and with the radiologist, showing brain atrophy and ventriculomegaly. It looks as though the degree of ventriculomegaly may have increased between the CT in February 2019 and August 2019. LABS: Normal white count, sodium, BUN, creatinine 1.2. Others reviewed in the chart. ASSESSMENT AND PLAN: 1. Sounds like hypertensive urgency on arrival with some associated dizziness and without evidence of ischemic stroke on MRI. Symptoms improved or resolved with treatment of the blood pressure per primary team, which is reassuring. I do not think this presentation is related to the question of ventriculomegaly or normal pressure hydrocephalus noted on prior CT imaging. 2. Ventriculomegaly on CT imaging raising the question of normal pressure hydrocephalus. I believe normal pressure hydrocephalus to be difficult to mule tender on imaging in the setting of cerebral atrophy which the patient has. The ventricular size may have increased from CT findings in February 2019 a August 2019, but that could also be on the basis of increased brain atrophy which is difficult to mule tender. Clinically, her gait does not appear to be consistent with normal pressure hydrocephalus and overall she has a pretty good gait. Of all the symptoms of normal pressure hydrocephalus, the gait would be the one that would have the potential for most improvement if managed surgically with a shunt, but again, I do not see that she has evidence of typical gait finding. I do think she has some cognitive impairment and she has cerebral atrophy on imaging. She may benefit from Aricept in the future and we would be happy to see her in clinic for that. In terms of further normal pressure hydrocephalus evaluation, I do not believe a high-volume lumbar puncture and pressure measurement would be appropriate at this time after just being admitted with hypertensive urgency and recovering from this. If symptoms worsen or change with time, we could reconsider. She already has an appointment with Dr. Brown, a neurosurgeon in [place] for a surgical opinion. Thank you for the consultation. cc: Meeta Fine MD MTDD
[2019-09-09] MEDS ORDERED: LOPRESSOR PO SCH (21:00)
--- NOTE | 2019-09-10 08:42 | DISCHARGE SUMMARY ---
ADMISSION DATE: 09/06/2019 DISCHARGE DATE: 09/09/2019 DISCHARGE DIAGNOSES: 1. Dizziness on presentation, likely due to severe uncontrolled hypertension. 2. Likely hypertensive urgency. 3. Reported normal-pressure hydrocephalus on previous CT scan, this has been ruled out and evaluated by Neurology. 4. Hyperlipidemia. 5. Chronic kidney disease stage II. 6. 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 CONSULTATIONS: Cardiology Department and Neurology Department. PROCEDURES PERFORMED: 1. Chest x-ray dated 09/06/2019. Impression: Emphysema. 2. Head CT scan dated 09/06/2019. Impression: Stable chronic changes, no definite acute intracranial pathology by CT. 3. Previous CT scan of the head dated 08/21/2019. Impression: Findings compatible with worsening normal-pressure hydrocephalus, advanced cerebral atrophy. 4. CT angiogram of the chest dated 09/06/2019. Impression: No evidence of pulmonary embolism, mild interstitial edema with a basilar predominance and mild bibasilar atelectasis. 5. Extremity venous study dated 09/06/2019. No superficial venous thrombosis or DVT in either lower extremity veins identified. 6. Brain MRA. Impression: No evidence of acute vascular abnormality. 7. Brain MRI dated 09/09/2019. Impression: Chronic ischemic microvascular changes. No evidence of acute disease. HOSPITAL COURSE: An 83-year-old female with a past medical history of CVA 20+ years ago, hypertension, hyperlipidemia, presented to the emergency department was admitted on 09/06/2019 due to dizziness. As per the patient, she was trying to go to the bathroom 3 times and she needed to use a walker because of her dizziness, and she was able to do that without falling. She denied any other symptoms other than feeling like she was drunk and her head felt full. Around 2 months ago, apparently she hit the back of her head and they did a CT of the head on 08/21/2019 that showed changes compatible with worsening normal-pressure hydrocephalus. However, she had another one that showed just stable changes and ventriculomegaly, likely atrophy. When she came to the emergency department, her blood pressure was more than 200, has been treated and the blood pressure got better, and she states that after treating the blood pressure, the dizziness went away. No findings on the neurological exam, she was oriented. After treating the blood pressure, the heart rate increased but then normalized. Because of her elevated D-dimer, a pulmonary arteriogram and a Doppler ultrasound was done but did not show any clots. Neurology Department evaluated this patient due to those changes suggestive of normal-pressure hydrocephalus but this has been ruled out. I believe this is more chronic changes, but this patient probably has dementia and we will follow this patient up as an outpatient for that. Brain MRI and MRA did not show any acute abnormality, only chronic changes. Echocardiogram, though, showed a good ejection fraction with [id number] left ventricular hypertrophy with a posterior and interventricular septal wall thickness of 1.2 and 1.6 respectively. There is a significant left ventricular outflow tract gradient that is as high as 190 mmHg on peak. Cardiology Department evaluated this patient. They managed her medications and actually they stopped the hydralazine and put this patient on amlodipine and they also put this patient on beta blockers, metoprolol. We will continue with the losartan as well and they will follow this patient up in a month. The patient seems to be stable. She is oriented x3 today. She is not having problems walking. She will be discharged home. I talked to the patient about living by herself and I do not think that at this point she should be living by herself and I talked to her in front of the family member and I recommended to stay with somebody else in the meantime. We need to rule out dementia as an outpatient. PHYSICAL EXAMINATION: Vital signs: Temperature 98.6 degrees, pulse 54, respiratory rate 12, blood pressure 156/55, oxygen saturation 100% on room air. HEENT: Head normocephalic, no trauma. PERRLA. Neck: Supple. No JVD. No masses. Central trachea. Chest: Clear to auscultation. No wheezing. No rales. Cardiovascular: Regular rate and rhythm, a little bradycardic. Abdomen: Soft, nontender, nondistended. No hepatosplenomegaly. Extremities: No edema, no clubbing, no cyanosis. Neurological: The patient is awake, alert, she is oriented x3. No focal deficits at this moment. LABORATORY DATA: WBC 8.3, hemoglobin 14.1, hematocrit 45.6, platelets 194,000. Sodium 137, potassium 4, chloride 99, bicarbonate 27, BUN 20, creatinine 1.2, glucose 91, calcium 9.3. Magnesium 1.7. AST 26, ALT 13, alkaline phosphatase 54. DISCHARGE MEDICATIONS: Amlodipine 5 mg p.o. daily, atorvastatin 20 mg p.o. daily, losartan 50 mg p.o. daily, and Lopressor 25 mg p.o. b.i.d. cc: Sergey Fox MD
== END 2019-09-09 16:58 | disposition home or self-care (01) | DRG 305 ==
LOC: ED 09:54 → EDIPHOLD 22:20 → SUATTDRO 22:20 → 3N 23:40
PROVIDERS: ATTEND Internal Medicine